=== PATIENT | female | born 1950 | race Caucasian/White ===

== ENCOUNTER 2018-02-15 16:15 | Emergency (ER) | payer OTHER ==
[2018-02-15 16:43] LABS: PLATELET COUNT 242 10^3/uL (150-400)
[2018-02-15] MEDS ORDERED: NS 500 ML IV ONE (16:52)
--- NOTE | 2018-02-15 16:52 | EDPHY ---
HPI/HX/ROS/PE/MDM Narrative: CHIEF COMPLAINT: Near syncope, nauseated, numbness in hands HISTORY OF PRESENT ILLNESS: The patient is a 67 y/o female with a history of osteoporosis complaining of a sudden onset of nausea, numbness and tingling in her hands, and near syncope. She had a peaceful morning and felt normal. This afternoon, she was walking around the [employer] [place] when she abruptly felt nauseated. Jones then became hot and sweaty and felt near syncope. She sat down and felt her hands were numb and tingling, worse on the left. Throughout the episode, she felt her heart racing. The episode lasted 20 minutes and resolved. She developed a headache shortly after the episode. She denies chest pain, difficulty breathing, or any other associated symptoms. She denies history of cardiac conditions or stents. Her father had a heart attack in his 60s. She recently travelled to and from [place] with driving to [place] and back, returning . She denies any recent alcohol or marijuana use. No fever, chills, chest pain, shortness of breath, palpitations, vomiting, diarrhea, urinary complaints. REVIEW OF SYSTEMS: A comprehensive 10 system review of systems is otherwise negative aside from elements mentioned in the history of present illness and medical decision making. PAST MEDICAL HISTORY: Osteoporosis SOCIAL HISTORY: at bedside, lives in [facility] VITAL SIGNS: Reviewed by me GENERAL: Well-developed, well-nourished, resting comfortably in no respiratory distress. HEENT: Atraumatic. Eyes: No icterus, no injection. Mouth: moist mucous membranes. No erythema or lesions. Neck: supple with no adenopathy. LUNGS: Clear to auscultation bilaterally, no wheezes, rhonchi or rales. CARDIAC: Regular rate and rhythm, no rubs, murmurs or gallops. ABDOMEN: Soft, nontender, nondistended, bowel sounds normal. BACK: No CVA tenderness. EXTREMITIES: No trauma. No edema. Range of motion is normal throughout. NEURO: Alert and oriented, grossly nonfocal. SKIN: Skin slightly cool and clammy, no rash. PSYCHIATRIC: Normal mentation, no agitation. ED Course: 12-LEAD EKG: Please see the full report in [facility]. My interpretation: Normal sinus rhythm The patient presents with an episode of nausea, near syncope, sweating, and hand numbness while walking around the [employer]. She denies any precipitating factors. Her symptoms resolved after 20 minutes, though she now has a headache. Her exam is normal, though her skin is slightly clammy. Plan for CBC, basic metabolic panel, lipase, troponin, d-dimer, and EKG to evaluate etiology, and 500 ml NS fluid. 5:30 PM - The patient's labs are not concerning or indicative of etiology. EKG was sinus rhythm. I spoke with Era who will get her followed up on Friday. I feel she is safe to return home. She agrees to this course of action. MDM: Differential diagnosis for this patient's episode of syncope was considered including but not limited to vasovagal syncope, arrhythmia, dehydration, and blood loss. - Data Points Laboratory Results: Laboratory Results 02/15/18 16:25 02/15/18 16:25 Medications Given: Discontinued Medications Acetaminophen (Tylenol) 1,000 mg PO EDNOW ONE Stop: 02/15/18 17:49 Last Admin: 02/15/18 18:07 Dose: 1,000 mg Sodium Chloride (Ns) 500 mls @ 1,000 mls/hr IV EDNOW ONE PRN Reason: Protocol Stop: 02/15/18 17:21 Last Admin: 02/15/18 17:03 Dose: 500 mls Ondansetron HCl (Zofran Odt) 4 mg PO EDNOW ONE Stop: 02/15/18 17:48 Last Admin: 02/15/18 18:07 Dose: 4 mg Ondansetron HCl (Zofran Odt 4 Mg Prepack#2) 1 btl TAKEHOME EDNOW ONE Stop: 02/15/18 17:48 Last Admin: 02/15/18 18:07 Dose: 1 btl Point of Care Test Results: Chemistry 02/15/18 16:42 POC Troponin I 0.00 ng/mL ng/mL (0.00-0.08) General Time Seen by Provider: 02/15/18 16:37 Initial Vital Signs: Initial Vital Signs Temperature (C) 36.6 C 02/15/18 16:19 Heart Rate 76 02/15/18 16:19 Respiratory Rate 16 02/15/18 16:19 Blood Pressure 141/77 H 02/15/18 16:19 O2 Sat (%) 93 02/15/18 16:19 O2 Delivery Mode Room Air Allergies/Adverse Reactions: bee venom protein (honey bee) Allergy (Verified 02/15/18 16:18) hydrocodone Allergy (Verified 02/15/18 16:18) Home Medications: Medication Instructions Recorded Vitamins 02/15/18 Departure - Departure Disposition: Home, Routine, Self-Care Clinical Impression: Vaso vagal episode Condition: Good Instructions: Ondansetron (By mouth), Syncope in Older Adults (ED) Additional Instructions: 1. Please follow up with a medical provider at 10:10AM Friday [facility]. This appointment has already been made. 2. Seek medical urgently for a recurrence of symptoms or any worsening of condition. Referrals: NONE *PRIMARY CARE P,. [Primary Care Provider] - As per Instructions Report Scribed for: Ana Pérez Report Scribed by: Debora Rg Date of Report: 02/15/18 Time of Report: 17:32 Physician Review and Approval Statement: Portions of this note were transcribed by a medical record librarian. I personally performed a history, physical exam, medical decision making, and confirmed accuracy of information the transcribed note.
[2018-02-15] MEDS ORDERED: ONDANSETRON 4MG PREPACK#2 BTL TAKEHOME ONE (17:47)
[2018-02-15] MEDS ORDERED: ONDANSETRON DISINTEGRATING 4 MG TAB PO ONE (17:47)
[2018-02-15] MEDS ORDERED: ACETAMINOPHEN 500 MG TAB PO ONE (17:48)
[2018-02-15 18:11] VITALS: BP 137/86
--- NOTE | 2018-02-15 22:25 | CPEKG ---
Test Reason : OPEN Blood Pressure : / mmHG Vent. Rate : 072 BPM Atrial Rate : 072 BPM P-R Int : 152 ms QRS Dur : 094 ms QT Int : 404 ms P-R-T Axes : 031 029 061 degrees QTc Int : 443 ms Sinus rhythm Confirmed by Ana Pérez ([id number]) on 02/15/2018 10:24:26 PM Referred By: Confirmed By:Ana Pérez
== END 2018-02-15 18:20 | disposition home or self-care (01) ==
LOC: EDUNIT#
DX: R55 Syncope and collapse (principal); R11.0 Nausea; R20.2 Paresthesia of skin
CPT/HCPCS: 93005; 99284; J1200; 84484-PO